=== PATIENT | male | born 1955 | race Caucasian/White ===

== ENCOUNTER → 2019-02-15 | Outpatient (CLI) | payer BC, OTHER | LOC: NUC 08:50 | DX: M25.561 Pain in right knee (principal); Z96.651 Presence of right artificial knee joint ==

== ENCOUNTER 2019-05-11 06:03 | Inpatient (IN) | payer OTHER ==
[2019-04-21 08:54] LABS: HEMATOCRIT 43.7 % (42.0-52.0); HEMOGLOBIN 14.4 gm/dL (14.0-18.0); MCH 28.3 pg (26.0-34.0); MCV 85.9 fL (80.0-100.0); RBC 5.09 mil/uL (4.50-6.00); RDW 14.1 % (10.5-14.5); WBC 5.1 thou/uL (4.0-11.0)
[2019-04-21 09:00] LABS: ALBUMIN 3.9 g/dL (3.4-5.0); CALCIUM 8.9 mg/dL (8.5-10.1); CREATININE 1.3 mg/dL (0.7-1.3); POTASSIUM 4.3 mmol/L (3.5-5.1)
[2019-04-21 09:01] LABS: PROTIME 10.6 Seconds (9.3-11.4)
[2019-04-21 09:21] LABS: URINE BILIRUBIN NEGATIVE (Negative); URINE BLOOD NEGATIVE (Negative); URINE CLARITY CLEAR; URINE COLOR YELLOW; URINE GLUCOSE-RANDOM* NEGATIVE (Negative); URINE KETONES NEGATIVE (Negative); URINE LEUKOCYTES-REFLEX NEGATIVE (Negative); URINE NITRITE-REFLEX NEGATIVE (Negative); URINE PROTEIN (DIPSTICK) NEGATIVE (Negative); URINE SPECIFIC GRAVITY 1.025 (1.005-1.035); URINE UROBILINOGEN 0.2 E.U./dl (0.2-1.0)
[~2019-05-11] VITALS: Ht 175.3 cm; Wt 88.9 kg
[~2019-05-11 06:03] MED LIST: ALLEGRA ALLERG180 MG PO; ASPIR 8181 M1 PO; COLESTIPOL HCL1 G1 PO; CRESTOR40 MG PO; LEVOXYL100 MCG PO; PROTONIX40 M1 PO; TROSPIUM CHLORI20 MG PO; ZETIA10 MG PO
[2019-05-11 07:24] VITALS: BP 147/89
--- NOTE | 2019-05-11 18:42 | NUR ---
63 YO MALE ADMITTED TO 438 FROM PACU. MARTIN DRG TO R KNEE WITH POLAR PACK C/D/I. RAND PADRON AND SCD'S IN PLACE. TOLERATING REG TRAY WELL. DENIES ANY PAIN AT THIS TIME.
[2019-05-11 20:23] VITALS: BP 138/65
[2019-05-12 00:22] VITALS: BP 124/65
--- NOTE | 2019-05-12 03:29 | NUR ---
ASSUMED CARE OF PT @1900 PT ASSESSED AT START OF SHIFT A&OX4. MARTIN DRESSING INTACT. PAIN MED GIVEN FOR MANAGEMENT. WEARS CPAP @ NIGHT. IV INTACT AND FLUIDS INFUSING. SCD'S ON ON BLE. CALL LIGHT IN PLACE AND FALL PREC INTACT WILL CONT WITH POC TILL EOS.
[2019-05-12 04:26] VITALS: BP 116/61
[2019-05-12 08:42] VITALS: BP 139/77
[2019-05-12 09:08] LABS: HEMATOCRIT 39.6 % (42.0-52.0); HEMOGLOBIN 12.9 gm/dL (14.0-18.0); MCHC 32.6 g/dL (28.0-37.0); MCV 85.9 fL (80.0-100.0); RBC 4.62 mil/uL (4.50-6.00); RDW 13.7 % (10.5-14.5); WBC 12.8 thou/uL (4.0-11.0)
--- NOTE | 2019-05-12 10:09 | NUR ---
Chart reviewed and case discussed with the care team. Pt did very well with therapy today. Dc today to outpt f/u. Pt has needed dme from previous surgery. No cm interventions indicated.
[2019-05-12 10:11] VITALS: BP 139/77
[2019-05-12] MEDS ORDERED: ASPIR 8181 M1 PO (13:03)
[2019-05-12] MEDS ORDERED: NEURONTIN 300300 M1 PO (13:03)
[2019-05-12 14:41] VITALS: BP 139/77
[2019-05-12 14:59] VITALS: BP 139/77
--- NOTE | 2019-05-12 17:06 | PATH ---
[facility] [place] [address] PATHOLOGY RPT PROCEDURE Name: BLADE GUTIÉRREZ Room #: 438-P DIS IN M.R.#: [id number] Admission: 05/11/19 Date of : 51 Discharge: 05/12/19 Report #: [id number] Path Case #: [id number] [facility] Accession Number: [id number] . 01 Material submitted: . knee - RIGHT KNEE TISSUE - FS. Modifiers: right . 02 Frozen section diagnosis: . FROZEN SECTION DIAGNOSIS: (Dr. Autumn Trevizo) . FSA1. Synovium, right knee biopsy: - Moderate chronic inflammation with degenerative changes. - No increase in neutrophils (none greater than 5/hpf) on frozen section slides. . These findings are discussed with Dr. Rolly Leone in OR 5 at [facility] and a written report is placed in the patient's chart. (IUV:pit; 05/11/2019) . . . FROZEN SECTION GROSS DESCRIPTION: The specimen is received fresh from the OR labeled with the patient's name and, "right knee tissue", and consists of multiple fragments of synovium and underlying soft tissue measuring an aggregate of approximately 5.5 x 5.0 x 1.5 cm. The evident shiny portions of this specimen resembling synovium are shaved and submitted for frozen section as FSA1, this is subsequently submitted for permanent sections as A1. The un-frozen remainder tissue is submitted entirely in A2 to A7. . Frozen section performed at [facility], [address] [place] [address]. IZV/QTP . 02 Diagnosis: Synovium, right knee tissue, right knee revision and biopsy: - Moderate chronic inflammation including macrophages, consistent with reparative/regenerative changes. - No increase in neutrophils (none greater than 5/hpf). - Reactive synovial hyperplasia. (IUV:binh; 05/12/2019) QMS 05/12/2019 1521 Local . 02 Electronically signed: . Autumn Trevizo MD, Pathologist NPI- [id number] [address] [address] PATHOLOGY RPT PROCEDURE Name: BLADE GUTIÉRREZ Room #: 438-P DIS IN M.R.#: [id number] Admission: 05/11/19 Date of : 51 Discharge: 05/12/19 Report #: [id number] Path Case #: [id number] . 01 Gross description: . SEE FROZEN SECTION FOR GROSS DESCRIPTION /QTP 05/11/2019 1108 Local . 02 Pathologist provided ICD-10: M67.861 . 02 CPT . 718392, [id number] Specimen Comment: A courtesy copy of this report has been sent to [phone], [phone] Specimen Comment: [phone] Specimen Comment: Report sent to / DR COELLO Performed at: [address], [place] [id number] MD Con Palacios MD Phone: [phone] Performed at: [address] [id number] MD Autumn Trevizo MD Phone: [phone]
--- NOTE | 2019-05-12 17:11 | NUR ---
DC ORDERS RECIEVED. DC INSTRUCTIONS, SCRIPTS AND FOLLOW UP APPOINTMENT REVIEWED WITH PT. IV REMOVED FROM R HAND. PT ESCORTED TO MAIN ENTRANCE.
--- NOTE | 2019-05-18 12:13 | O ---
[facility] [place] [address] OPERATIVE REPORT Name: BLADE GUTIÉRREZ Room #: 438-P [facility] M.R.#: [id number] Admission: 05/11/19 Attend Phys: Rolly Leone MD Discharge: 05/12/19 Date of : 51 Report #: [id number] THIS REPORT FOR: //name// CC: Rolly Yan DATE OF SERVICE: 05/11/2019 PREOPERATIVE DIAGNOSIS: Aseptic loosening, right total knee arthroplasty. POSTOPERATIVE: Aseptic loosening, right total knee arthroplasty. PROCEDURE: Revision of right total knee arthroplasty, all components. SURGEON: Rolly Leone MD. FREELANCE RECRUITER: Stacey Lewis PA-C. INDICATIONS FOR FREELANCE RECRUITER: Throughout the case, extensive retraction and manipulation of the knee was required. This was afforded to me by my assistant professor of english. ANESTHESIA: LMA with an adductor canal block. IMPLANTS: [employer] size 6 revision Oxinium Legion femur with a size 14 x 160 stem and a 4 mm offset director of strategic communications, size 5 tibial revision baseplate with a 13 x 160 stem and a 2 mm offset director of strategic communications, size 11 highly constrained polyethylene and size 35 patella. TOURNIQUET TIME: 91 minutes. ESTIMATED BLOOD LOSS: 50 mL. COMPLICATIONS: None. SPECIMENS: None. CONDITION UPON LEAVING THE OPERATING ROOM: Stable. INDICATIONS FOR PROCEDURE: The patient is a 63-year-old gentleman, who is about a year out from a right total knee arthroplasty using the DePuy Attune system. He has had chronic pain in his knee ever since his surgery and a bone scan was performed showing to have aseptic loosening of the total knee arthroplasty. Workup for infection was negative and after discussion with him, he elected for revision right total knee arthroplasty. DESCRIPTION OF PROCEDURE: Risks, benefits, alternatives, complications were [facility] [address] [place] [address] OPERATIVE REPORT Name: MARLABLADE Elio Room #: 438-P [facility] IN M.R.#: [id number] Admission: 05/11/19 Attend Phys: Rolly Leone MD Discharge: 05/12/19 Date of : 51 Report #: [id number] discussed in detail with the patient including, but not limited to risk of anesthesia, risk of damage to nerves, arteries, blood vessels, risk for infection, bleeding, risk for continued knee pain and need for reoperation. Informed consent was obtained from the patient. Right knee was appropriately marked in the preoperative holding area. IV Ancef was given for preoperative antibiotics. He was brought to the operating room and placed in supine position on operating room table. LMA anesthesia was induced without complications. Tourniquet was placed on the right thigh. Right lower extremity was prepped and draped in normal sterile fashion. Timeout was performed properly identifying the patient and procedure as well as the instrumentation and implants. All in the operating room were in agreement. Right lower extremity was exsanguinated, tourniquet was inflated. Tourniquet time was 91 minutes. Previous scar was used and the skin was opened with a 10 blade through the skin down to the fascia and deep flaps were developed medially and laterally. Fresh 10 blade was used to make a medial parapatellar arthrotomy and cultures of the synovial fluid were sent x 2. Medial and lateral gutters were reestablished. The polyethylene spacer was removed from the knee and several areas of synovium were resected and sent for intraoperative frozen section, which was negative for any neutrophils per high power field. The femoral component was then removed using a combination of curved and a flat and rigid osteotomes. Attention was turned to the tibia. Tibial component easily was removed with 1 hit of the osteotome. There was no cement bonded to the tibial component at all and all the cement stayed with the bone. It was obvious that this was loose. After this, the tibial and femoral canals were reamed up to. We reamed up to a size 13 on the tibial side and a cleanup cut was made based off the reamer itself. After this, tibia was sized and found to be a size 5. The size 5 tibia with a 2 mm offset director of strategic communications at the 2 o'clock position fits best . This was then drilled with the proximal reamer and the trial tibial component was setup for a size 5 tibia with a 2 mm offset director of strategic communications and a 13 x 160 stem. After this, attention was turned to the femur. This was reamed up to a 14 and a distal cleanout cut was made. Femur was sized and found to be a size 6 that fits best with a 4 mm offset director of strategic communications at the 6 o'clock position. This was then cleaned up. Cuts were then made anterior posteriorly and chamfer cuts. A femoral trial was then built on the back table and the box cut was made. After this, the knee was trialed with a size 11 and then a size 13 constrained polyethylene and size 11 had the best fit with full extension. The previous patellar button was then removed with the oscillating saw and a cleanup cut was made on the patella and a size 35 patellar trial was placed. Knee was taken through range of motion, found to be stable, found to have good patellar tracking. After this, trial components were removed. Bony ends were thoroughly irrigated with normal saline. The final components were built on the back table. Cement was mixed and the final implants were cemented in place using standard cementation techniques. While the cement cured, a periarticular injection consisting of morphine, ropivacaine, epinephrine, and Toradol was placed around the knee joint capsule. After the cement cured, the tourniquet was deflated. Hemostasis was obtained with Bovie cautery. A final size 11 highly constrained polyethylene was placed. A cristiano [address] [address] OPERATIVE REPORT Name: BLADE GUTIÉRREZ Room #: 438-P [facility] IN M.R.#: [id number] Admission: 05/11/19 Attend Phys: Rolly Leone MD Discharge: 05/12/19 Date of : 51 Report #: [id number] vancomycin was placed deep in the joint. Fascia was closed with 0 Vicryl. Skin was closed with 2-0 Vicryl and skin staple and a MARTIN dressing was applied. The patient tolerated this procedure well and went to recovery room under care of anesthesia postoperatively. <ELECTRONICALLY SIGNED> By: Rolly Leone MD 05/18/19 1213 1022 1041 Rolly Leone MD /nt
== END 2019-05-12 15:59 | disposition home or self-care (01) | DRG 468 ==
LOC: 4S 06:03 → TBA 06:03 → PRE 07:52 → 4S 16:29
PROVIDERS: ADMIT Orthopaedic Surgery
PROC: 0SPC0JZ Removal of Synthetic Substitute from Right Knee Joint, Open Approach (ICD-10-PCS; principal; 2019-05-11)
PROC: 0SRC069 Replacement of Right Knee Joint with Oxidized Zirconium on Polyethylene Synthetic Substitute, Cemented, Open Approach (ICD-10-PCS; 2019-05-11)
DX: T84.032A Mechanical loosening of internal right knee prosthetic joint, initial encounter (principal); Y83.8 Other surgical procedures as the cause of abnormal reaction of the patient, or of later complication, without mention of misadventure at the time of the procedure; Y92.89 Other specified places as the place of occurrence of the external cause
CPT/HCPCS: 10102; 50010; 50101; 50415; 50954; 51130; 51225; 51412; 52282; 53000; 53078; 55389; 56528; 57095; 57103; 57110; 57180; 62110; 62900; 64039; 70005